=== PATIENT | male | born 1985 | race African-American/Black ===

== ENCOUNTER 2021-07-03 19:40 | Emergency (ER) | payer SELFPAY ==
[2021-07-03 20:42] LABS: Bilirubin Negative (Negative); Blood, Urine Negative (Negative); Glucose, Urine (Dipstick) Negative (Negative); Ketone, Urine Trace mg/dL (Negative); Leukocyte Trace (Negative); Nitrite Negative (Negative); Protein, Urine (Dipstick) Negative (Neg-Trace); Urobilinogen 0.2 mg/dL (Less than 2)
[2021-07-03 20:44] LABS: Clarity Hazy (Clear)
[2021-07-03 21:07] LABS: Bacteria/HPF Rare-Few HPF (None Seen); RBC/HPF 0-3 HPF (0-3); Squamous Epithelial 0-3 HPF (0-3)
[2021-07-03 21:08] LABS: Mucous/LPF Rare LPF (<2+)
[2021-07-03 21:09] LABS: Calcium Oxalate Crystals 3+ HPF (None Seen)
== END 2021-07-03 21:33 | disposition home or self-care (01) ==
LOC: ERS 19:40
DX: N34.2 Other urethritis (principal)
CPT/HCPCS: 81003; 81015; 87086; 87491; 87591; 99283